=== PATIENT | female | born 1975 | race Caucasian/White ===

== ENCOUNTER 2017-10-22 13:36 | Emergency (ER) | payer MEDICAID ==
[2017-10-22] MEDS: predniSONE 20 MG TAB PO (15:55)
[2017-10-22] MEDS: ALBUTEROL 0.083% (NEB) 2.5 MG/3 ML AMP HHN (16:25)
[2017-10-22] MEDS: IPRATROPIUM (NEB) 0.5 MG/2.5 ML AMP HHN (16:25)
[2017-10-22] MEDS: ALPRAZOLAM 0.25 MG TAB PO (16:28)
== END 2017-10-22 17:49 | disposition home or self-care (01) ==
LOC: E/R 13:36 → FTE 17:49
DX: J45.901 Unspecified asthma with (acute) exacerbation (principal)
CPT/HCPCS: 71046; 94664; 99284-25

== ENCOUNTER 2017-11-02 14:53 | Emergency (ER) | payer MEDICAID ==
[2017-11-02] MEDS: METHYLPREDNISOLONE 125 MG INJ IM (16:06)
[2017-11-02] MEDS: ONDANSETRON (ODT) 4 MG TAB ODT (16:21)
[2017-11-02] MEDS: ALBUTEROL 0.083% (NEB) 2.5 MG/3 ML AMP HHN (16:47)
[2017-11-02] MEDS: IPRATROPIUM (NEB) 0.5 MG/2.5 ML AMP HHN (16:47)
== END 2017-11-02 17:32 | disposition home or self-care (01) ==
LOC: FTE 14:53
DX: J45.901 Unspecified asthma with (acute) exacerbation (principal)
CPT/HCPCS: 71045; 94664; 96372; 99284-25

== ENCOUNTER 2018-02-22 07:51 | Emergency (ER) | payer MEDICAID ==
[2018-02-22] MEDS: KETOROLAC 30 MG INJ IM (08:33)
== END 2018-02-22 10:00 | disposition home or self-care (01) ==
LOC: FTE 07:51
DX: S70.01XA Contusion of right hip, initial encounter (principal); M54.5 Low back pain; M79.604 Pain in right leg; R10.2 Pelvic and perineal pain; W18.30XA Fall on same level, unspecified, initial encounter; Y92.512 Supermarket, store or market as the place of occurrence of the external cause
CPT/HCPCS: 72072; 72100; 72170; 73510; 81025; 96372; 99284-25

== ENCOUNTER 2018-09-13 00:26 | Emergency (ER) | payer MEDICAID | END 2018-09-13 03:50 | disposition home or self-care (01) | LOC: FTE 00:26 | DX: J20.9 Acute bronchitis, unspecified (principal) | CPT/HCPCS: 71045; 99283-25 ==